=== PATIENT | male | born 1950 | race Caucasian/White ===

== ENCOUNTER 2023-03-08 10:10 | Day surgery (SDC) | payer OTHER ==
[2023-03-08 08:52] LABS: Hematocrit 51.1 % (39.6-49.0); Lymphocytes % 12.1 % (15.3-44.8); MCV 108.2 fL (80-100); MPV 8.5 fL (7.6-11.3); RBC Red Blood Cell Count 4.72 M/uL (4.33-5.43)
[2023-03-08 08:56] LABS: Protime INR 0.97
[2023-03-08 09:08] LABS: Albumin 3.3 g/dL (3.4-5.0); Potassium 4.1 mEq/L (3.5-5.1); Protein, Total 8.1 g/dL (6.4-8.2)
[2023-03-08 10:16] LABS: Blood Morphology Comment NOTED (NOT SEEN); Macrocytosis 1+; Platelet Estimate ADEQ; White Blood Cell Scan OK (OK)
[2023-03-08] MEDS ORDERED: NA CHLORIDE 0.9% 1,000 ML ONE (10:32)
--- NOTE | 2023-03-08 10:50 | RAD REPORT ---
EXAM DESCRIPTION: RAD - Chest Pa And Lat (2 Views) - 03/08/2023 9:43 am CLINICAL HISTORY: pre op pending colonscopy Chest pain. COMPARISON: No comparisons TECHNIQUE: PA and lateral views of the chest were obtained. FINDINGS: The lungs are hyperexpanded compatible with COPD. Small hiatal hernia. The heart is upper limit of normal in size. No fracture or aggressive bony process. IMPRESSION: COPD without acute process identified. The USPSTF recommends annual screening for lung cancer with low-dose CT (LDCT) in adults aged 50 to 8 0 years who have a 20 pack-year smoking history and currently smoke or have quit within the past 15 y ears.
[2023-03-08] MEDS ORDERED: propofoL 200 MG/20 ML VIAL IV ONE ×4 (10:57→11:51)
[2023-03-08] MEDS ORDERED: LIDOCAINE 1% MPF 5 ML VIAL ONE (10:57)
[2023-03-08 13:40] VITALS: BP 151/80; TEMP 97.2; O2SAT 96
--- NOTE | 2023-03-08 14:44 | EKG ---
Test Date: 2023-03-08 Test Time: 08:08:56 Dramatic Agent: NEVAEH MEASUREMENT RESULTS: Intervals: Rate: 55 ID: [id number] QRSD: 92 QT: 454 QTc: 434 [place]: P: ID: [id number] QRS: -26 T: 28 INTERPRETIVE STATEMENTS: Sinus bradycardia with sinus arrhythmia Possible Inferior infarct, age undetermined Abnormal ECG No previous ECG available for comparison Electronically Signed On 03-08-23 14:44:10 CDT by Kenn Khan
== END 2023-03-08 13:30 | disposition home or self-care (01) ==
LOC: OR 10:10
PROVIDERS: ATTEND Surgery
PROC: 0DBL8ZX Excision of Transverse Colon, Via Natural or Artificial Opening Endoscopic, Diagnostic (ICD-10-PCS; 2023-03-08)
PROC: 0DBP8ZX Excision of Rectum, Via Natural or Artificial Opening Endoscopic, Diagnostic (ICD-10-PCS; 2023-03-08)
PROC: 0DBM8ZX Excision of Descending Colon, Via Natural or Artificial Opening Endoscopic, Diagnostic (ICD-10-PCS; 2023-03-08)
PROC: 0DBH8ZX Excision of Cecum, Via Natural or Artificial Opening Endoscopic, Diagnostic (ICD-10-PCS; 2023-03-08)
PROC: 0DBK8ZX Excision of Ascending Colon, Via Natural or Artificial Opening Endoscopic, Diagnostic (ICD-10-PCS; principal; 2023-03-08 10:45)
DX: K92.1 Melena (principal); R15.9 Full incontinence of feces; H54.7 Unspecified visual loss; I10 Essential (primary) hypertension; Z86.73 Personal history of transient ischemic attack (TIA), and cerebral infarction without residual deficits; K57.30 Diverticulosis of large intestine without perforation or abscess without bleeding; K64.8 Other hemorrhoids; D12.2 Benign neoplasm of ascending colon; D12.0 Benign neoplasm of cecum; D12.4 Benign neoplasm of descending colon; D12.3 Benign neoplasm of transverse colon; D12.8 Benign neoplasm of rectum
CPT/HCPCS: 93005; 85025; 36415; 85610; 82947; 88305; 85730; 80053; 71046; 45385; J2704 ×3; J2001; J7030

== ENCOUNTER 2023-07-15 10:01 | Day surgery (SDC) | payer OTHER ==
[2023-07-15 10:28] LABS: Potassium 4.2 mEq/L (3.5-5.1)
[2023-07-15] MEDS ORDERED: Ringers Lactate 1,000 ML IV ONE (10:37)
[2023-07-15] MEDS ORDERED: LIDOCAINE 1% MPF 30 ML VIAL ONE (11:34)
[2023-07-15] MEDS ORDERED: propofoL 200 MG/20 ML VIAL IV ONE ×2 (11:34)
[2023-07-15 14:07] VITALS: TEMP 97.5; O2SAT 92
[2023-07-15 14:08] VITALS: BP 124/70
== END 2023-07-15 12:15 | disposition home or self-care (01) ==
LOC: OR 10:01
PROVIDERS: ATTEND Surgery
PROC: 0DBP8ZX Excision of Rectum, Via Natural or Artificial Opening Endoscopic, Diagnostic (ICD-10-PCS; 2023-07-15)
PROC: 0DBK8ZX Excision of Ascending Colon, Via Natural or Artificial Opening Endoscopic, Diagnostic (ICD-10-PCS; principal; 2023-07-15 12:15)
DX: Z12.11 Encounter for screening for malignant neoplasm of colon (principal); K92.1 Melena; Z86.010 Personal history of colon polyps; D12.2 Benign neoplasm of ascending colon; K63.5 Polyp of colon; K57.30 Diverticulosis of large intestine without perforation or abscess without bleeding; K64.8 Other hemorrhoids
CPT/HCPCS: 80048; 36415; 88305; 45385; J2704 ×2; J2001; J7120

== ENCOUNTER 2024-09-04 06:18 | Day surgery (SDC) | payer OTHER ==
[2024-09-04 07:03] LABS: Absolute Basophils 0.1 K/uL (0-0.5); Absolute Eosinophils 0.2 K/uL (0-0.5); Absolute Lymphocytes (CBC) 0.6 K/uL (0.7-4.9); Absolute Monocytes 0.7 K/uL (0.1-1.3); Absolute Neutrophil 5.8 K/uL (1.8-8.0); Basophils % 0.8 % (0-1.3); Eosinophils % 2.4 % (0-4.4); Hematocrit 45.5 % (39.6-49.0); Hemoglobin 14.6 g/dL (13.6-17.9); Lymphocytes % 7.7 % (15.3-44.8); MCH 33.5 pg (27.0-35.0); MCV 104.5 fL (80-100); MPV 8.4 fL (7.6-11.3); Monocytes % 9.6 % (3.3-12.3); Neutrophils % 79.5 % (41.7-73.7); Nucleated Red Blood Cells % 0.1 % (0-0); Platelets 188 thou/uL (152-406); RBC Red Blood Cell Count 4.35 M/uL (4.33-5.43); Red Cell Distribution Width 17.1 % (12.1-15.2)
[2024-09-04 07:21] LABS: Anion Gap 11.1 mEq/L (5.0-15.0); Potassium 4.1 mEq/L (3.5-5.1)
[2024-09-04] MEDS: NA CHLORIDE 0.9% 1,000 ML ONE (07:25)
[2024-09-04] MEDS ORDERED: propofoL 200 MG/20 ML VIAL IV ONE ×3 (08:59→09:48)
[2024-09-04] MEDS: ALBUTEROL 2.5 MG/3 ML NEB SOL ONE (10:21)
[2024-09-04 16:37] VITALS: TEMP 97
[2024-09-04 16:43] VITALS: O2SAT 88
[2024-09-04 16:44] VITALS: BP 127/58
== END 2024-09-04 11:30 | disposition home or self-care (01) ==
LOC: PRE 06:18 → OR 11:30
PROVIDERS: ATTEND Surgery
PROC: 0DBK8ZX Excision of Ascending Colon, Via Natural or Artificial Opening Endoscopic, Diagnostic (ICD-10-PCS; principal; 2024-09-04 08:45)
DX: Z12.11 Encounter for screening for malignant neoplasm of colon (principal); Z86.0100 Personal history of colon polyps, unspecified; I10 Essential (primary) hypertension; F17.210 Nicotine dependence, cigarettes, uncomplicated; N42.9 Disorder of prostate, unspecified; D12.2 Benign neoplasm of ascending colon
CPT/HCPCS: 85025; 80048; 36415; 82947 ×2; 88305; 45385; J2704 ×2; J7613; J7030